=== PATIENT | female | born 1985 | race Hispanic/Latino ===

== ENCOUNTER 2017-07-16 22:37 | Emergency (ER) | payer OTHER ==
[~2017-07-16 22:37] MED LIST: PHEN50TA2 PO; SULF1TAB42 PO
[2017-07-16] MEDS ORDERED: LORAZEPAM 2 MG/ML 1 ML VIAL ONE (23:27)
[2017-07-17 00:52] LABS: APPEARANCE,URINE Clear (CLEAR); BILIRUBIN,URINE Negative (NEGATIVE); COLOR,URINE Yellow (YELLOW); GLUCOSE, URINE (UA) Negative (NEGATIVE); KETONES,URINE Negative (NEGATIVE); LEUKOCYTE ESTERASE ,URINE Trace (NEGATIVE); NITRATE,URINE Negative (NEGATIVE); OCCULT BLOOD,URINE Trace (NEGATIVE); PROTEIN,URINE Negative (NEGATIVE); UROBILINOGEN,URINE 0.2 mg/dL (0.2-1.0)
[2017-07-17 01:02] LABS: BACTERIA,URINE Rare /HPF (None Seen); RBC,URINE 0-1 /HPF (0-1); WBC,URINE 0-1 /HPF (0-1)
[2017-07-17 01:04] LABS: HCG,QUAL RESULT NEGATIVE (NEGATIVE)
[2017-07-17] MEDS ORDERED: LIDOCAINE 1%-EPI 1:100,000 20 ML VIAL IJ ONE (01:27)
== END 2017-07-17 02:57 | disposition home or self-care (01) ==
LOC: EDH 22:37
DX: S01.81XA Laceration without foreign body of other part of head, initial encounter (principal); R56.9 Unspecified convulsions; Z91.041 Radiographic dye allergy status; Z88.0 Allergy status to penicillin; Z91.013 Allergy to seafood; X99.1XXA Assault by knife, initial encounter; Y93.89 Activity, other specified; Y92.89 Other specified places as the place of occurrence of the external cause; Y99.8 Other external cause status; F43.10 Post-traumatic stress disorder, unspecified
CPT/HCPCS: 12015; 70110; 71045; 81001; 81025; 96372; 99285; J2060; J3490

== ENCOUNTER 2017-07-23 15:11 | Emergency (ER) | payer OTHER ==
[2017-07-23] MEDS ORDERED: SODIUM CHLORIDE 0.9% 200 ML IV ONE (15:19)
[2017-07-23] MEDS ORDERED: FOSPHENYTOIN SODIUM 500 MG/10ML VIAL IJ ONE (15:20)
[2017-07-23 15:32] LABS: BASOPHILS % (AUTO) 0.9 % (0.0-5.0); EOSINOPHILS % (AUTO) 1.4 % (0.0-8.0); LYMPHOCYTES % (AUTO) 19.7 % (21.0-51.0); MEAN CORPUSCULAR HEMOGLOBIN 25.3 pg (27.0-33.0); MEAN CORPUSCULAR HGB CONC 33.1 g/dL (32.0-36.0); MEAN CORPUSCULAR VOLUME 76.3 fL (79-99); MONOCYTES % (AUTO) 6.8 % (3.0-13.0); NEUTROPHILS % (AUTO) 71.2 % (40.0-77.0); PLATELET COUNT (AUTO) 336 K/uL (130-400); RED BLOOD CELL COUNT(AUTO) 5.37 MIL/uL (4.00-5.50); RED CELL DISTRIBUTION WIDTH 16.3 % (11.0-15.5); WHITE BLOOD COUNT (AUTO) 8.8 K/uL (4.8-10.8)
[2017-07-23 15:33] LABS: APPEARANCE,URINE Clear (CLEAR); BILIRUBIN,URINE Negative (NEGATIVE); COLOR,URINE Yellow (YELLOW); GLUCOSE, URINE (UA) Negative (NEGATIVE); KETONES,URINE Negative (NEGATIVE); LEUKOCYTE ESTERASE ,URINE Negative (NEGATIVE); NITRATE,URINE Negative (NEGATIVE); OCCULT BLOOD,URINE Negative (NEGATIVE); PH,URINE 5.5 (5.0-8.0); PROTEIN,URINE Negative (NEGATIVE); UROBILINOGEN,URINE 0.2 mg/dL (0.2-1.0)
[2017-07-23 15:34] LABS: AMPHET/METH SCREEN,URINE NEGATIVE (NEGATIVE); BARBITURATE SCREEN, URINE NEGATIVE (NEGATIVE); BENZODIAZEPINES SCREEN,URINE POSITIVE (NEGATIVE); CANNABINOID SCREEN,URINE NEGATIVE (NEGATIVE); COCAINE SCREEN,URINE POSITIVE (NEGATIVE); OPIATE SCREEN,URINE NEGATIVE (NEGATIVE); PHENCYCLIDINE SCREEN,URINE NEGATIVE (NEGATIVE)
[2017-07-23 15:45] LABS: POTASSIUM 3.4 mmol/L (3.5-5.1)
[2017-07-23 15:48] LABS: HCG,QUAL RESULT NEGATIVE (NEGATIVE)
[2017-07-23 15:50] LABS: ALBUMIN 3.7 g/dL (3.5-5.0); BILIRUBIN,TOTAL 0.2 mg/dL (0.2-1.0); TOTAL PROTEIN, SERUM 7.9 g/dL (6.0-8.3)
== END 2017-07-23 17:55 | disposition home or self-care (01) ==
LOC: EDH 15:11
DX: G40.909 Epilepsy, unspecified, not intractable, without status epilepticus (principal); F19.10 Other psychoactive substance abuse, uncomplicated
CPT/HCPCS: 36415; 74176; 80053; 80177; 80305; 81003; 81025; 85025; 96365; 96375; 99285; G0480; Q2009

== ENCOUNTER 2018-02-25 21:43 | Emergency (ER) | payer SELFPAY ==
[2018-02-25] MEDS ORDERED: HYDROCODONE/ACETAMINOPHEN 10/325 MG TAB ONE (22:43)
== END 2018-02-25 23:29 | disposition home or self-care (01) ==
LOC: EDH 21:43
DX: S93.401A Sprain of unspecified ligament of right ankle, initial encounter (principal); S39.012A Strain of muscle, fascia and tendon of lower back, initial encounter; F41.9 Anxiety disorder, unspecified; F31.9 Bipolar disorder, unspecified; F43.10 Post-traumatic stress disorder, unspecified; Z88.0 Allergy status to penicillin; Z91.041 Radiographic dye allergy status; Z91.013 Allergy to seafood; Z98.51 Tubal ligation status; Z98.890 Other specified postprocedural states; W20.8XXA Other cause of strike by thrown, projected or falling object, initial encounter; Y93.39 Activity, other involving climbing, rappelling and jumping off; Y92.89 Other specified places as the place of occurrence of the external cause; Y99.8 Other external cause status
CPT/HCPCS: 73610

== ENCOUNTER 2019-03-15 08:00 | Inpatient (IN) | payer OTHER ==
[~2019-03-15] VITALS: Ht 157.5 cm; Wt 88.9 kg
[2019-03-15] MEDS ORDERED: EPINEPHRINE 1 MG/ML AMPULE ONE (08:04)
[2019-03-15] MEDS ORDERED: ALBUTEROL SULFATE 0.083% 2.5 MG/3 ML INH IH ONE ×3 (08:07→11:08)
[2019-03-15] MEDS ORDERED: METHYLPREDNISOLONE SOD SUCC 40MG/ML 1ML ONE ×2 (08:20→15:53)
[2019-03-15 08:24] LABS: ABG BASE EXCESS -1.8 mmol/L (-2.0-3.0); ABG HCO3 22.3 mmol/L (21.0-28.0); ABG OXYGEN SATURATION 97.9 % (95.0-99.0); ABG PCO2 36 mmHg (32-45)
[2019-03-15 08:35] LABS: BASOPHILS % (AUTO) 0.1 % (0.0-5.0); EOSINOPHILS % (AUTO) 0.9 % (0.0-8.0); LYMPHOCYTES % (AUTO) 10.1 % (21.0-51.0); MEAN CORPUSCULAR HEMOGLOBIN 25.6 pg (27.0-33.0); MEAN CORPUSCULAR HGB CONC 32.1 g/dL (32.0-36.0); MEAN CORPUSCULAR VOLUME 79.5 fL (79-99); MONOCYTES % (AUTO) 2.8 % (3.0-13.0); NEUTROPHILS % (AUTO) 85.4 % (40.0-77.0); PLATELET COUNT (AUTO) 311 K/uL (130-400); RED BLOOD CELL COUNT(AUTO) 5.28 MIL/uL (4.00-5.50); RED CELL DISTRIBUTION WIDTH 14.1 % (11.0-15.5); WHITE BLOOD COUNT (AUTO) 14.4 K/uL (4.8-10.8)
[2019-03-15 09:28] LABS: AMPHET/METH SCREEN,URINE NEGATIVE (NEGATIVE); BARBITURATE SCREEN, URINE NEGATIVE (NEGATIVE); BENZODIAZEPINES SCREEN,URINE POSITIVE (NEGATIVE); CANNABINOID SCREEN,URINE NEGATIVE (NEGATIVE); COCAINE SCREEN,URINE POSITIVE (NEGATIVE); OPIATE SCREEN,URINE NEGATIVE (NEGATIVE); PHENCYCLIDINE SCREEN,URINE NEGATIVE (NEGATIVE)
[2019-03-15 09:35] LABS: CREATININE 0.9 mg/dL (0.5-1.5); POTASSIUM 3.5 mmol/L (3.5-5.1)
[2019-03-15] MEDS: SODIUM CHLORIDE 0.9% 1000ML 1,000 ML IV SCH (15:00)
[2019-03-15] MEDS ORDERED: ONDANSETRON HCL 4 MG/2 ML VIAL IV PRN (15:00)
[2019-03-15] MEDS ORDERED: ACETAMINOPHEN 325 MG TAB PO PRN ×2 (15:00)
[2019-03-15] MEDS: LEVOFLOXACIN 500 MG/D5W 100 ML 100 ML IV SCH (15:15)
[2019-03-15] MEDS ORDERED: METHYLPREDNISOLONE SOD SUCC 40MG/ML 1ML IVP SCH (15:15)
[2019-03-15] MEDS ORDERED: SODIUM CHLORIDE 0.9% 1000ML 1,000 ML IV ONE (15:54)
[2019-03-15] MEDS ORDERED: LEVOFLOXACIN 500 MG/D5W 100 ML 100 ML ONE (15:54)
[2019-03-15] MEDS: IPRATROPIUM/ALBUTEROL SULFATE 3 ML SOLUTION IH SCH ×2 (18:31→23:41)
[2019-03-15 19:00] VITALS: BP 124/65
[2019-03-15] MEDS: FAMOTIDINE/PF 20 MG/2 ML VIAL IV SCH (22:28)
[2019-03-15] MEDS: CETIRIZINE HCL 5 MG TABLET PO SCH (22:29)
[2019-03-15 23:43] VITALS: BP 147/76
[2019-03-15] MEDS: METHYLPREDNISOLONE SOD SUCC 40MG/ML 1ML IVP SCH (23:57)
[2019-03-16 04:00] VITALS: BP 155/92
[2019-03-16 04:55] LABS: EOSINOPHILS % (AUTO) 0.1 % (0.0-8.0); HEMATOCRIT 38.5 % (36-48); LYMPHOCYTES % (AUTO) 6.4 % (21.0-51.0); MEAN CORPUSCULAR HEMOGLOBIN 25.8 pg (27.0-33.0); MEAN CORPUSCULAR HGB CONC 32.2 g/dL (32.0-36.0); MEAN CORPUSCULAR VOLUME 80.2 fL (79-99); MONOCYTES % (AUTO) 1.7 % (3.0-13.0); NEUTROPHILS % (AUTO) 90.9 % (40.0-77.0); PLATELET COUNT (AUTO) 296 K/uL (130-400); RED CELL DISTRIBUTION WIDTH 14.5 % (11.0-15.5); WHITE BLOOD COUNT (AUTO) 8.7 K/uL (4.8-10.8)
[2019-03-16 05:04] LABS: ALBUMIN 3.3 g/dL (3.5-5.0); BILIRUBIN,TOTAL 0.3 mg/dL (0.2-1.0); CREATININE 0.7 mg/dL (0.5-1.5); POTASSIUM 4.2 mmol/L (3.5-5.1); TOTAL PROTEIN, SERUM 7.2 g/dL (6.0-8.3)
[2019-03-16] MEDS: IPRATROPIUM/ALBUTEROL SULFATE 3 ML SOLUTION IH SCH ×3 (06:16→23:55)
[2019-03-16 08:00] VITALS: BP 138/78
[2019-03-16] MEDS: FAMOTIDINE/PF 20 MG/2 ML VIAL IV SCH ×2 (09:00→21:27)
[2019-03-16 09:09] LABS: CREATINE KINASE, TOTAL 55 U/L (21-232); MYOGLOBIN 30 ng/mL (10-92); TROPONIN I < 0.04 ng/mL (0.00-0.06)
[2019-03-16] MEDS: METHYLPREDNISOLONE SOD SUCC 40MG/ML 1ML IVP SCH ×2 (09:13→17:21)
[2019-03-16] MEDS: MONTELUKAST SODIUM 10 MG TAB PO SCH (09:14)
[2019-03-16] MEDS: CETIRIZINE HCL 5 MG TABLET PO SCH ×2 (09:14→21:26)
--- NOTE | 2019-03-16 11:51 | NUR ---
PSYCH CONSULT PAGED DR. XAVIER REGARDING NEW CONSULT FOR PATIENT WITH HX OF BIPOLAR, PTSD, AND ANXIETY.
[2019-03-16 12:03] VITALS: BP 130/83
--- NOTE | 2019-03-16 14:16 | NUR ---
Iniital Assessment SW spoke with patient. Patient lives with brother, Santiago Dent, [phone]. No home services or DME. Patient is independent but does not drive. No PCP. Pharmacy is [facility] located in [place]. DCP is home. Patient has no insurance or benefits. She is a [place] citizen and has filed for disability. Patient states her SSI appt was 01/04/2019. [facility] is working with patient. Patient provided with community resources for post discharge follow up and Good Rx card for prescriptions. Addendum: 03/16/19 at 1428 by JOSE PASCUAL Amended: Links added.
[2019-03-16] MEDS: LEVOFLOXACIN 500 MG/D5W 100 ML 100 ML IV SCH (15:05)
[2019-03-16 16:00] VITALS: BP 117/72
[2019-03-16 20:00] VITALS: BP 148/88
[2019-03-16 23:48] VITALS: BP 131/58
[2019-03-17] VITALS (7 sets, daily range): BP systolic 117–131; BP diastolic 45–80
[2019-03-17] MEDS: SODIUM CHLORIDE 0.9% 1000ML 1,000 ML IV SCH ×4 (00:32→14:45)
[2019-03-17] MEDS: METHYLPREDNISOLONE SOD SUCC 40MG/ML 1ML IVP SCH ×3 (00:32→14:55)
[2019-03-17 04:35] LABS: HEMATOCRIT 37.8 % (36-48); MEAN CORPUSCULAR HEMOGLOBIN 25.9 pg (27.0-33.0); MEAN CORPUSCULAR HGB CONC 31.7 g/dL (32.0-36.0); MEAN CORPUSCULAR VOLUME 81.5 fL (79-99); PLATELET COUNT (AUTO) 298 K/uL (130-400); RED BLOOD CELL COUNT(AUTO) 4.64 MIL/uL (4.00-5.50); RED CELL DISTRIBUTION WIDTH 14.9 % (11.0-15.5); WHITE BLOOD COUNT (AUTO) 9.1 K/uL (4.8-10.8)
[2019-03-17 04:43] LABS: CREATININE 0.8 mg/dL (0.5-1.5); POTASSIUM 4.6 mmol/L (3.5-5.1)
[2019-03-17] MEDS: IPRATROPIUM/ALBUTEROL SULFATE 3 ML SOLUTION IH SCH ×4 (06:46→23:21)
[2019-03-17] MEDS: MONTELUKAST SODIUM 10 MG TAB PO SCH (08:30)
[2019-03-17] MEDS: CETIRIZINE HCL 5 MG TABLET PO SCH ×2 (08:30→20:29)
[2019-03-17] MEDS: FAMOTIDINE/PF 20 MG/2 ML VIAL IV SCH ×2 (08:31→20:28)
--- NOTE | 2019-03-17 11:36 | NUR ---
[facility] [place] SPOKE TO JOHANA FROM [facility] REGARDING PT MEDICATIONS. SHE WAS ABLE TO OCNFIRM MEDS. DR GÓMEZ MADE AWARE. WILL CONT TO [place]
[2019-03-17] MEDS ORDERED: LITH300T4 PO (11:41)
[2019-03-17] MEDS ORDERED: TRAZ-187 PO (11:41)
[2019-03-17] MEDS ORDERED: GABA-531 PO (11:42)
[2019-03-17] MEDS ORDERED: ESCI20TA PO (11:42)
[2019-03-17] MEDS ORDERED: PRAZ1CAP5 PO (11:42)
[2019-03-17] MEDS: KETOROLAC TROMETHAMINE 15MG/ML IV PRN ×2 (12:44→20:34)
[2019-03-17] MEDS: LEVOFLOXACIN 500 MG/D5W 100 ML 100 ML IV SCH (14:56)
[2019-03-17] MEDS: GABAPENTIN 300 MG CAPSULE PO SCH ×2 (14:56→20:29)
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
[2019-03-17] MEDS: LACTULOSE 20 GM/30 ML UDCUP PO PRN (19:07)
[2019-03-17] MEDS: FOLIC ACID 1 MG TABLET PO SCH (20:29)
[2019-03-17] MEDS: LITHIUM CARBONATE 150 MG CAPSULE PO SCH (20:29)
[2019-03-17] MEDS: TRAZODONE HCL 100 MG TABLET PO SCH (20:30)
--- NOTE | 2019-03-17 20:30 | NUR ---
IV IV RIGHT AC INFILTRATED, DISCONTINUED IV, KEEP RUE ELEVATED ON PILLOW , RESTART IV LEFT AC 20 GAUGE CATHETER ,ATTEMPT X1 AND SUCCESSFUL,RESUME IVF INFUSING WELL, NO SEIZURE ACTIVITY NOTED, TEACH PLAN OF CARE AND EXPECTED OUTCOME, PATIENT VERBALIZES UNDERSTANDING VIA TEACH BACK
[2019-03-17] MEDS ORDERED: PRAZOSIN HCL 1 MG PO SCH (21:00)
[2019-03-18] MEDS: SODIUM CHLORIDE 0.9% 1000ML 1,000 ML IV SCH
[2019-03-18] MEDS: METHYLPREDNISOLONE SOD SUCC 40MG/ML 1ML IVP SCH
[2019-03-18 03:43] VITALS: BP 117/56
[2019-03-18] MEDS: KETOROLAC TROMETHAMINE 15MG/ML IV PRN ×2 (04:02→10:34)
[2019-03-18 04:57] LABS: BASOPHILS % (AUTO) 0.1 % (0.0-5.0); HEMATOCRIT 37.1 % (36-48); LYMPHOCYTES % (AUTO) 7.3 % (21.0-51.0); MEAN CORPUSCULAR HEMOGLOBIN 26.3 pg (27.0-33.0); MEAN CORPUSCULAR HGB CONC 32.3 g/dL (32.0-36.0); MEAN CORPUSCULAR VOLUME 81.2 fL (79-99); MONOCYTES % (AUTO) 4.9 % (3.0-13.0); NEUTROPHILS % (AUTO) 85.7 % (40.0-77.0); PLATELET COUNT (AUTO) 300 K/uL (130-400); RED BLOOD CELL COUNT(AUTO) 4.57 MIL/uL (4.00-5.50); RED CELL DISTRIBUTION WIDTH 14.6 % (11.0-15.5); WHITE BLOOD COUNT (AUTO) 10.4 K/uL (4.8-10.8)
[2019-03-18 05:08] LABS: ALBUMIN 3.1 g/dL (3.5-5.0); BILIRUBIN,TOTAL 0.2 mg/dL (0.2-1.0); CREATININE 0.8 mg/dL (0.5-1.5); POTASSIUM 4.6 mmol/L (3.5-5.1); TOTAL PROTEIN, SERUM 6.7 g/dL (6.0-8.3)
[2019-03-18] MEDS: IPRATROPIUM/ALBUTEROL SULFATE 3 ML SOLUTION IH SCH ×2 (06:13→11:19)
[2019-03-18 07:20] VITALS: BP 116/70
[2019-03-18] MEDS ORDERED: METHYLPREDNISOLONE SOD SUCC 40MG/ML 1ML IVP SCH (09:00)
[2019-03-18] MEDS: CETIRIZINE HCL 5 MG TABLET PO SCH (10:25)
[2019-03-18] MEDS: FAMOTIDINE/PF 20 MG/2 ML VIAL IV SCH (10:25)
[2019-03-18] MEDS: MONTELUKAST SODIUM 10 MG TAB PO SCH (10:26)
[2019-03-18] MEDS: FOLIC ACID 1 MG TABLET PO SCH (10:26)
[2019-03-18] MEDS: CITALOPRAM 20 MG TABLET PO SCH ×2 (10:26→18:07)
[2019-03-18] MEDS: LITHIUM CARBONATE 150 MG CAPSULE PO SCH ×2 (10:26→18:07)
[2019-03-18] MEDS: GABAPENTIN 300 MG CAPSULE PO SCH ×3 (10:28→18:07)
[2019-03-18] MEDS: LACTULOSE 20 GM/30 ML UDCUP PO PRN (10:39)
[2019-03-18 10:52] VITALS: BP 149/89
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
--- NOTE | 2019-03-18 14:50 | NUR ---
[facility] CALLED [facility] , SPOKE TO MERYL. INFORMED PATIENT MEDICALLY CLEARED AND NEEDS EVALUATION PRIOR TO DISCHARGE. INFORMED THAT PATIENT IS A CURRENT PATIENT OF [facility]. MERYL TOLD ME PATIENT MAY NOT MEET [facility] FOR EVALUATION PATIENT IS NOT ACTIVELY SUICIDAL, BUT A PAGE WOULD STILL BE SENT TO [facility] ENTRY LEVEL PROJECT ENGINEER.
[2019-03-18 15:41] VITALS: BP 129/64
[2019-03-18] MEDS ORDERED: BUDE10.2 IH (15:51)
[2019-03-18] MEDS: LEVOFLOXACIN 500 MG/D5W 100 ML 100 ML IV SCH (15:53)
--- NOTE | 2019-03-18 17:15 | NUR ---
[facility] TO F/U WITH PATIENT SPOKE TO [facility] FOOTBALL PAD REPAIRER, Luis ANNE, WHO WAS ON FLOOR AT THIS TIME TO SEE ANOTHER PATIENT. I ASKED ABOUT THE [facility] PROCESS REGARDING FOLLOWING-UP WITH PATIENTS AFTER DISCHARGE FROM HOSPITAL. Luis ANNE TOLD ME THAT ONCE [facility] RECEIVES CALL FROM NURSE, THAT [facility] WILL RECEIVE THE ALERT AND WILL SEND A CORDUROY BRUSHER OPERATOR TO PATIENTS HOME TO FOLLOW-UP AFTER DISCHARGE.
[2019-03-18] MEDS ORDERED: BUDESONIDE 0.5 MG/2 ML INH IH SCH (18:00)
[2019-03-18] MEDS: TRAZODONE HCL 100 MG TABLET PO SCH (18:08)
== END 2019-03-18 18:53 | disposition home or self-care (01) | DRG 202 ==
LOC: EDH 08:00 → EDHIP 08:01 → 4BH 18:43
PROVIDERS: ADMIT Internal Medicine; ATTEND Internal Medicine
DX: J45.902 Unspecified asthma with status asthmaticus (principal); J96.00 Acute respiratory failure, unspecified whether with hypoxia or hypercapnia; S27.309A Unspecified injury of lung, unspecified, initial encounter; D72.829 Elevated white blood cell count, unspecified; F14.10 Cocaine abuse, uncomplicated; F31.9 Bipolar disorder, unspecified; F41.1 Generalized anxiety disorder; F43.10 Post-traumatic stress disorder, unspecified; G40.909 Epilepsy, unspecified, not intractable, without status epilepticus; F43.22 Adjustment disorder with anxiety; J44.9 Chronic obstructive pulmonary disease, unspecified; Y93.89 Activity, other specified; Y92.89 Other specified places as the place of occurrence of the external cause; Y99.8 Other external cause status; Z91.19 Patient's noncompliance with other medical treatment and regimen; Z87.820 Personal history of traumatic brain injury; Z91.013 Allergy to seafood; Z88.8 Allergy status to other drugs, medicaments and biological substances; Z82.5 Family history of asthma and other chronic lower respiratory diseases
CPT/HCPCS: 36415; 36600; 70360; 70551; 71045; 80048; 80053; 80305; 82550; 82803; 83874; 84484; 85025; 85027; 87804; 93005; 94640; 94664; 99291; G0378; J0171; J1885; J1956; J2920; J3490; J7030

== ENCOUNTER 2019-04-02 12:55 | Inpatient (IN) | payer OTHER ==
[~2019-04-02 12:55] MED LIST changes: +BUDE10.2 IH; +ESCI20TA PO; +GABA-531 PO; +LITH300T4 PO; -PHEN50TA2 PO; +PRAZ1CAP5 PO; -SULF1TAB42 PO; +TRAZ-187 PO
[2019-04-02] MEDS ORDERED: IPRATROPIUM/ALBUTEROL SULFATE 3 ML SOLUTION IH ONE ×2 (12:58→16:12)
[2019-04-02] MEDS ORDERED: METHYLPREDNISOLONE SOD SUCC 125MG/2ML VIAL ONE (13:12)
[2019-04-02 13:20] LABS: BASOPHILS % (AUTO) 1.5 % (0.0-5.0); HEMATOCRIT 42.9 % (36-48); LYMPHOCYTES % (AUTO) 9.7 % (21.0-51.0); MEAN CORPUSCULAR HEMOGLOBIN 25.9 pg (27.0-33.0); MEAN CORPUSCULAR HGB CONC 32.2 g/dL (32.0-36.0); MEAN CORPUSCULAR VOLUME 80.5 fL (79-99); MONOCYTES % (AUTO) 4.8 % (3.0-13.0); NEUTROPHILS % (AUTO) 65.2 % (40.0-77.0); PLATELET COUNT (AUTO) 237 K/uL (130-400); RED BLOOD CELL COUNT(AUTO) 5.33 MIL/uL (4.00-5.50); RED CELL DISTRIBUTION WIDTH 14.3 % (11.0-15.5); WHITE BLOOD COUNT (AUTO) 11.1 K/uL (4.8-10.8)
[2019-04-02] MEDS ORDERED: MAGNESIUM 2GM PREMIX 50ML 50 ML IV ONE (13:23)
[2019-04-02 13:28] LABS: CREATININE 0.6 mg/dL (0.5-1.5); POTASSIUM 5.6 mmol/L (3.5-5.1)
[2019-04-02 13:36] LABS: ALBUMIN 3.7 g/dL (3.5-5.0); BILIRUBIN,TOTAL 0.5 mg/dL (0.2-1.0); TOTAL PROTEIN, SERUM 7.9 g/dL (6.0-8.3)
[2019-04-02] MEDS ORDERED: METHYLPREDNISOLONE SOD SUCC 40MG/ML 1ML IVP SCH (15:45)
[2019-04-02] MEDS ORDERED: ACETAMINOPHEN 325 MG TAB PO PRN (15:45)
[2019-04-02] MEDS ORDERED: ONDANSETRON HCL 4 MG/2 ML VIAL IVP PRN (15:45)
[2019-04-02] MEDS: IPRATROPIUM/ALBUTEROL SULFATE 3 ML SOLUTION IH SCH ×2 (16:47→23:47)
[2019-04-02] MEDS ORDERED: FAMOTIDINE 20MG TAB 20 MG TAB ONE (20:58)
[2019-04-02] MEDS ORDERED: METHYLPREDNISOLONE SOD SUCC 40MG/ML 1ML ONE (20:58)
[2019-04-02] MEDS ORDERED: FAMOTIDINE 20MG TAB 20 MG TAB PO SCH (21:00)
[2019-04-03 00:45] LABS: AMPHET/METH SCREEN,URINE NEGATIVE (NEGATIVE); BARBITURATE SCREEN, URINE NEGATIVE (NEGATIVE); BENZODIAZEPINES SCREEN,URINE POSITIVE (NEGATIVE); CANNABINOID SCREEN,URINE NEGATIVE (NEGATIVE); COCAINE SCREEN,URINE POSITIVE (NEGATIVE); OPIATE SCREEN,URINE NEGATIVE (NEGATIVE); PHENCYCLIDINE SCREEN,URINE NEGATIVE (NEGATIVE)
[2019-04-03] MEDS ORDERED: IPRATROPIUM/ALBUTEROL SULFATE 3 ML SOLUTION IH ONE ×2 (05:21→11:01)
[2019-04-03] MEDS: IPRATROPIUM/ALBUTEROL SULFATE 3 ML SOLUTION IH SCH ×2 (05:26→11:08)
[2019-04-03 07:40] LABS: BASOPHILS % (AUTO) 0.5 % (0.0-5.0); EOSINOPHILS % (AUTO) 1.5 % (0.0-8.0); HEMATOCRIT 39.3 % (36-48); LYMPHOCYTES % (AUTO) 9.5 % (21.0-51.0); MEAN CORPUSCULAR HEMOGLOBIN 25.9 pg (27.0-33.0); MEAN CORPUSCULAR HGB CONC 32.1 g/dL (32.0-36.0); MEAN CORPUSCULAR VOLUME 80.9 fL (79-99); MONOCYTES % (AUTO) 5.8 % (3.0-13.0); NEUTROPHILS % (AUTO) 81.8 % (40.0-77.0); PLATELET COUNT (AUTO) 238 K/uL (130-400); RED BLOOD CELL COUNT(AUTO) 4.86 MIL/uL (4.00-5.50); RED CELL DISTRIBUTION WIDTH 14.5 % (11.0-15.5); WHITE BLOOD COUNT (AUTO) 10.2 K/uL (4.8-10.8)
[2019-04-03 07:51] LABS: CREATININE 0.6 mg/dL (0.5-1.5); MAGNESIUM 2.4 mg/dL (1.80-2.40); POTASSIUM 4.1 mmol/L (3.5-5.1)
[2019-04-03] MEDS ORDERED: ZOSYN 3.375GM+NS 50ML 50 ML IV ONE (09:19)
[2019-04-03] MEDS ORDERED: ENOXAPARIN SODIUM 40 MG/0.4 ML SYRINGE SQ ONE (09:19)
[2019-04-03] MEDS ORDERED: METHYLPREDNISOLONE SOD SUCC 40MG/ML 1ML ONE (09:19)
[2019-04-03] MEDS ORDERED: FAMOTIDINE/PF 20 MG/2 ML VIAL IV ONE (09:20)
[2019-04-03] MEDS ORDERED: LACTATED RINGERS 1000ML 1,000 ML IV ONE (09:20)
[2019-04-03] MEDS ORDERED: DOXYCYCLINE HYCLATE 100 MG TABLET PO SCH (21:00)
== END 2019-04-03 15:20 | disposition left against medical advice (07) | DRG 189 ==
LOC: EDH 12:55 → EDHIP 12:56
PROVIDERS: ADMIT Family Medicine; ATTEND Family Medicine
DX: J96.01 Acute respiratory failure with hypoxia (principal); J45.901 Unspecified asthma with (acute) exacerbation; F31.9 Bipolar disorder, unspecified; F41.9 Anxiety disorder, unspecified; G40.909 Epilepsy, unspecified, not intractable, without status epilepticus; J44.9 Chronic obstructive pulmonary disease, unspecified; F43.10 Post-traumatic stress disorder, unspecified; Z82.0 Family history of epilepsy and other diseases of the nervous system; Z82.5 Family history of asthma and other chronic lower respiratory diseases
CPT/HCPCS: 36415; 71045; 80048; 80053; 80305; 83735; 84702; 85025; 87040; 87804; 94640; 94664; 99291; G0378; J1650; J2543; J2920; J2930; J3475; J3490; J7120

== ENCOUNTER 2019-04-06 16:30 | Inpatient (IN) | payer OTHER ==
[~2019-04-06] VITALS: Ht 165.1 cm; Wt 86.8 kg
[2019-04-06] MEDS ORDERED: IPRATROPIUM/ALBUTEROL SULFATE 3 ML SOLUTION IH ONE (16:36)
[2019-04-06] MEDS ORDERED: METHYLPREDNISOLONE SOD SUCC 125MG/2ML VIAL ONE (16:47)
[2019-04-06] MEDS ORDERED: MAGNESIUM 2GM PREMIX 50ML 50 ML IV ONE (16:47)
[2019-04-06] MEDS ORDERED: ALBUTEROL SULFATE 0.083% 2.5 MG/3 ML INH IH ONE (16:50)
[2019-04-06 16:53] LABS: BASOPHILS % (AUTO) 0.5 % (0.0-5.0); EOSINOPHILS % (AUTO) 29.4 % (0.0-8.0); HEMATOCRIT 44.3 % (36-48); LYMPHOCYTES % (AUTO) 5.9 % (21.0-51.0); MEAN CORPUSCULAR HEMOGLOBIN 25.5 pg (27.0-33.0); MEAN CORPUSCULAR HGB CONC 31.8 g/dL (32.0-36.0); MEAN CORPUSCULAR VOLUME 80.3 fL (79-99); MONOCYTES % (AUTO) 4.2 % (3.0-13.0); NEUTROPHILS % (AUTO) 59.5 % (40.0-77.0); PLATELET COUNT (AUTO) 306 K/uL (130-400); RED BLOOD CELL COUNT(AUTO) 5.52 MIL/uL (4.00-5.50); RED CELL DISTRIBUTION WIDTH 14.1 % (11.0-15.5); WHITE BLOOD COUNT (AUTO) 20.4 K/uL (4.8-10.8)
[2019-04-06 17:05] LABS: CREATININE 0.7 mg/dL (0.5-1.5); POTASSIUM 3.9 mmol/L (3.5-5.1)
[2019-04-06 17:10] LABS: ALBUMIN 3.7 g/dL (3.5-5.0); BILIRUBIN,TOTAL 0.6 mg/dL (0.2-1.0); TOTAL PROTEIN, SERUM 7.9 g/dL (6.0-8.3)
[2019-04-06] MEDS ORDERED: ACETAMINOPHEN EXTRA STRENGTH 500 MG TABLET ONE (17:49)
[2019-04-06] MEDS ORDERED: CLINDAMYCIN 600 MG/D5% WATER 50 ML IV ONE (17:49)
[2019-04-06] MEDS ORDERED: TERBUTALINE SULFATE VIAL 1MG/ML SQ ONE (18:15)
[2019-04-06] MEDS ORDERED: VANCOMYCIN PROTOCOL PER PHARMACY IV SCH (18:30)
[2019-04-06] MEDS: SODIUM CHLORIDE 0.9% 1000ML 1,000 ML IV SCH (18:30)
[2019-04-06 18:37] LABS: APPEARANCE,URINE Clear (CLEAR); BILIRUBIN,URINE Negative (NEGATIVE); COLOR,URINE Yellow (YELLOW); GLUCOSE, URINE (UA) Negative (NEGATIVE); KETONES,URINE Negative (NEGATIVE); LEUKOCYTE ESTERASE ,URINE Negative (NEGATIVE); NITRATE,URINE Negative (NEGATIVE); OCCULT BLOOD,URINE Negative (NEGATIVE); PH,URINE 5.5 (5.0-8.0); PROTEIN,URINE Negative (NEGATIVE); UROBILINOGEN,URINE 0.2 mg/dL (0.2-1.0)
[2019-04-06] MEDS ORDERED: VANCOMYCIN 1GM+NS 250ML 250 ML IV ONE (18:38)
[2019-04-06 18:39] LABS: HCG,QUAL RESULT NEGATIVE (NEGATIVE)
[2019-04-06 18:45] LABS: AMPHET/METH SCREEN,URINE NEGATIVE (NEGATIVE); BARBITURATE SCREEN, URINE NEGATIVE (NEGATIVE); BENZODIAZEPINES SCREEN,URINE POSITIVE (NEGATIVE); CANNABINOID SCREEN,URINE NEGATIVE (NEGATIVE); COCAINE SCREEN,URINE POSITIVE (NEGATIVE); OPIATE SCREEN,URINE NEGATIVE (NEGATIVE); PHENCYCLIDINE SCREEN,URINE NEGATIVE (NEGATIVE)
[2019-04-06] MEDS ORDERED: ACETAMINOPHEN 325 MG TAB PO PRN (18:45)
[2019-04-06] MEDS ORDERED: ONDANSETRON HCL 4 MG/2 ML VIAL IV PRN (18:45)
[2019-04-06] MEDS ORDERED: NITROGLYCERIN 0.4 MG SL TAB SL PRN (18:45)
[2019-04-06] MEDS: CLINDAMYCIN 600 MG/D5% WATER 50 ML IV SCH (18:45)
[2019-04-06] MEDS ORDERED: SODIUM CHLORIDE 0.9% 1000ML 1,000 ML IV SCH (18:45)
[2019-04-06] MEDS ORDERED: DiphenhydrAMINE HCL 50 MG/ML VIAL IV PRN (18:45)
[2019-04-06] MEDS ORDERED: COMPOUND IV REFRIGERATED 1 EACH IVSOLN MISC PRN (19:00)
[2019-04-06] MEDS ORDERED: VANCOMYCIN 1.75 GM in SODIUM CHLORIDE 0.9% 250 ML IV ONE (19:00)
[2019-04-06] MEDS ORDERED: SODIUM CHLORIDE 0.9% 1000ML 1,000 ML IV ONE ×2 (19:50→23:38)
[2019-04-06] MEDS ORDERED: FAMOTIDINE 20MG TAB 20 MG TAB ONE (19:50)
[2019-04-06] MEDS: FAMOTIDINE 20MG TAB 20 MG TAB PO SCH (21:00)
[2019-04-06] MEDS: IPRATROPIUM/ALBUTEROL SULFATE 3 ML SOLUTION IH SCH (22:25)
[2019-04-06] MEDS ORDERED: SODIUM CHLORIDE 3% FOR INHALATION 4 ML/AMP VIAL.NEB IH ONE (23:07)
[2019-04-06] MEDS ORDERED: ACETAMINOPHEN 325 MG TAB ONE (23:45)
[2019-04-07] MEDS ORDERED: METHYLPREDNISOLONE SOD SUCC 40MG/ML 1ML ONE (01:02)
[2019-04-07] MEDS: IPRATROPIUM/ALBUTEROL SULFATE 3 ML SOLUTION IH SCH ×5 (02:01→21:12)
[2019-04-07] MEDS ORDERED: CLINDAMYCIN 600 MG/D5% WATER 50 ML IV ONE (02:29)
[2019-04-07] MEDS: CLINDAMYCIN 600 MG/D5% WATER 50 ML IV SCH ×3 (02:45→21:25)
[2019-04-07 03:00] VITALS: BP 125/87
--- NOTE | 2019-04-07 03:00 | NUR ---
REPORT RECEIVED FROM PHILIP MATHEW. PT CAME IN DUE TO SOB. CURRENTLY NO DISTRESS NOTED. ON IV FLUIDS. CLEOCIN STARTED IN ER. PT HAS HISTORY OF ASTHMA, AND FREQUENTLY HOSPITALIZED DUE TO THIS SITUATION. PT PRESENTED HOME MEDICATIONS. AMBULATORY. NASAL CANNULA AT 3LPM.
[2019-04-07] MEDS: ACETAMINOPHEN 325 MG TAB PO PRN ×2 (04:00→14:11)
--- NOTE | 2019-04-07 04:00 | NUR ---
SOB NOTED-RT PLACED PT ON BIPAP. NEW ORDERS RECEIVED FOR BIPAP PER JESSICA CRYSTAL NP.
[2019-04-07] MEDS: SODIUM CHLORIDE 0.9% 1000ML 1,000 ML IV SCH ×2 (04:30→14:30)
[2019-04-07] MEDS: VANCOMYCIN 1GM+NS 250ML 250 ML IV SCH ×3 (05:10→21:25)
[2019-04-07] MEDS ORDERED: ALPR2TAB2 PO (05:26)
[2019-04-07 06:42] LABS: HEMATOCRIT 42.4 % (36-48); MEAN CORPUSCULAR HEMOGLOBIN 25.4 pg (27.0-33.0); MEAN CORPUSCULAR HGB CONC 31.1 g/dL (32.0-36.0); MEAN CORPUSCULAR VOLUME 81.5 fL (79-99); PLATELET COUNT (AUTO) 273 K/uL (130-400); RED CELL DISTRIBUTION WIDTH 14.2 % (11.0-15.5); WHITE BLOOD COUNT (AUTO) 7.8 K/uL (4.8-10.8)
[2019-04-07 06:59] LABS: ALBUMIN 3.7 g/dL (3.5-5.0); BILIRUBIN,TOTAL 0.3 mg/dL (0.2-1.0); CREATININE 0.7 mg/dL (0.5-1.5); MAGNESIUM 2.3 mg/dL (1.80-2.40); TOTAL PROTEIN, SERUM 7.6 g/dL (6.0-8.3)
[2019-04-07 07:27] LABS: ABG HCO3 22.3 mmol/L (21.0-28.0); ABG OXYGEN SATURATION 92.8 % (95.0-99.0); ABG PCO2 41 mmHg (32-45)
[2019-04-07 07:51] VITALS: BP 137/87
[2019-04-07 08:26] LABS: BAND NEUTROPHILS % (MANUAL) 1 % (0-2); LYMPHOCYTES % (MANUAL) 8 % (22-44); MAN.DIFF COMMENT-IMPRESSION MANUAL DIFFERENTIAL; MONOCYTES % (MANUAL) 1 % (2-9); SEGMENTED NEUTROPHILS % 90 % (40-70)
[2019-04-07 08:27] LABS: PLATELET MORPHOLOGY COMMENT ADEQUATE
[2019-04-07] MEDS: ENOXAPARIN SODIUM 40 MG/0.4 ML SYRINGE SQ SCH (08:51)
[2019-04-07] MEDS: METHYLPREDNISOLONE SOD SUCC 125MG/2ML VIAL IV SCH ×4 (08:52→23:42)
[2019-04-07] MEDS: FAMOTIDINE 20MG TAB 20 MG TAB PO SCH ×2 (08:52→21:24)
[2019-04-07 12:28] VITALS: BP 126/80
[2019-04-07 16:32] VITALS: BP 125/76
[2019-04-07 19:33] VITALS: BP 117/68
[2019-04-07 23:54] VITALS: BP 113/78
[2019-04-08] MEDS: SODIUM CHLORIDE 0.9% 1000ML 1,000 ML IV SCH ×2 (00:20→10:18)
[2019-04-08] MEDS: IPRATROPIUM/ALBUTEROL SULFATE 3 ML SOLUTION IH SCH ×6 (01:44→21:27)
[2019-04-08 04:00] VITALS: BP 118/68
[2019-04-08] MEDS: CLINDAMYCIN 600 MG/D5% WATER 50 ML IV SCH ×2 (04:24→10:13)
[2019-04-08] MEDS: VANCOMYCIN 1GM+NS 250ML 250 ML IV SCH (04:35)
[2019-04-08] MEDS: METHYLPREDNISOLONE SOD SUCC 125MG/2ML VIAL IV SCH (07:15)
[2019-04-08] MEDS: FAMOTIDINE 20MG TAB 20 MG TAB PO SCH ×2 (07:15→19:55)
[2019-04-08] MEDS: ENOXAPARIN SODIUM 40 MG/0.4 ML SYRINGE SQ SCH (07:15)
--- NOTE | 2019-04-08 07:45 | NUR ---
ASSESSMENT PT IS AAOX3 DENIES CP DENIES SOB WHILE AT REST. NO COUGHING AT THIS TIME. DENIES NV NO COMPLAINTS RESTING IN BED, CALL LIGHT WITHIN REACH. CURRENTLY RECEIVING NEB TREATMENT.
[2019-04-08 07:51] VITALS: BP 116/66
[2019-04-08] MEDS: GABAPENTIN 300 MG CAPSULE PO SCH ×3 (08:43→19:56)
[2019-04-08] MEDS: CITALOPRAM 20 MG TABLET PO SCH (08:43)
[2019-04-08] MEDS ORDERED: LITHIUM CARBONATE 150 MG CAPSULE PO SCH (09:00)
[2019-04-08 11:34] VITALS: BP 135/80
[2019-04-08] MEDS ORDERED: ALBUTEROL SULFATE/IPRATROPIUM 103/18 MCG/PUFF 14.7 GM INHR IH PRN (13:15)
--- NOTE | 2019-04-08 13:40 | NUR ---
DR BEAL ROUNDED SAW PATIENT, ORDERS RECEIVED
[2019-04-08 16:04] VITALS: BP 112/54
[2019-04-08] MEDS: BUDESONIDE 0.5 MG/2 ML INH IH SCH (19:13)
[2019-04-08 19:41] VITALS: BP 148/93
[2019-04-08] MEDS ORDERED: VANCOMYCIN 1.25 GM in SODIUM CHLORIDE 0.9% 250 ML IV SCH (20:00)
[2019-04-08] MEDS ORDERED: PRAZOSIN HCL 1 MG PO SCH (21:00)
[2019-04-08] MEDS ORDERED: TRAZODONE HCL 100 MG TABLET PO SCH (21:00)
[2019-04-09 00:01] VITALS: BP 124/50
[2019-04-09] MEDS: IPRATROPIUM/ALBUTEROL SULFATE 3 ML SOLUTION IH SCH ×3 (01:41→10:12)
[2019-04-09 03:52] VITALS: BP 108/38
[2019-04-09 04:22] VITALS: BP 130/67
[2019-04-09] MEDS: BUDESONIDE 0.5 MG/2 ML INH IH SCH (07:11)
[2019-04-09 07:12] VITALS: BP 113/75
[2019-04-09] MEDS: FAMOTIDINE 20MG TAB 20 MG TAB PO SCH (07:41)
[2019-04-09] MEDS: GABAPENTIN 300 MG CAPSULE PO SCH (07:41)
[2019-04-09] MEDS: CITALOPRAM 20 MG TABLET PO SCH (07:41)
[2019-04-09] MEDS: ENOXAPARIN SODIUM 40 MG/0.4 ML SYRINGE SQ SCH (07:42)
--- NOTE | 2019-04-09 08:00 | NUR ---
ASSESSMENT PT IS AAOX3 DENIES CP DENIES SOB DENIES NV NO COMPLAINTS AT THIS TIME. RESTING IN BED. CALL LIGHT WITHIN REACH.
[2019-04-09] MEDS ORDERED: PREDNISONE 20 MG TABLET PO SCH (09:00)
[2019-04-09 11:23] VITALS: BP 136/89
--- NOTE | 2019-04-09 12:00 | NUR ---
ROUNDS DR LIAN GREEN / Susanna EGAN NP ROUNDED, PLAN DC HOME TODAY
--- NOTE | 2019-04-09 13:00 | NUR ---
DC TO HOME PT VERBALIZES DC INSTRUCTIONS UNDERSTANDING AGREE TO TAKE MEDS ORDERED AGREE TO FOLLOW UP WITH PRIMARY MD. ALL QUESTIONS ANSWERED, PIV REMOVED CATH TIP INTACT, TELE PACK REMOVED. ALL BELONGINS TAKEN DOWN VIA WC TO VEHICLE WITH NURSE AIDE AND FAMILY
== END 2019-04-09 13:07 | disposition home or self-care (01) | DRG 189 ==
LOC: EDH 16:30 → EDHIP 16:31 → EEVIPCON 16:31 → 2DH 04-07 01:59
PROVIDERS: ADMIT Internal Medicine; ATTEND Internal Medicine
PROC: 5A09357 Assistance with Respiratory Ventilation, Less than 24 Consecutive Hours, Continuous Positive Airway Pressure (ICD-10-PCS; principal; 2019-04-07)
DX: J96.01 Acute respiratory failure with hypoxia (principal); J45.901 Unspecified asthma with (acute) exacerbation; J44.9 Chronic obstructive pulmonary disease, unspecified; F43.10 Post-traumatic stress disorder, unspecified; F31.9 Bipolar disorder, unspecified; G40.909 Epilepsy, unspecified, not intractable, without status epilepticus; F14.90 Cocaine use, unspecified, uncomplicated; K59.00 Constipation, unspecified; E66.9 Obesity, unspecified; E83.42 Hypomagnesemia; Z82.5 Family history of asthma and other chronic lower respiratory diseases; Z91.19 Patient's noncompliance with other medical treatment and regimen; Z82.0 Family history of epilepsy and other diseases of the nervous system; Z90.49 Acquired absence of other specified parts of digestive tract; Z98.51 Tubal ligation status; Z88.8 Allergy status to other drugs, medicaments and biological substances; Z91.041 Radiographic dye allergy status; Z88.0 Allergy status to penicillin; Z91.013 Allergy to seafood; Z68.32 Body mass index [BMI] 32.0-32.9, adult
CPT/HCPCS: 36415; 36600; 71045; 80053; 80178; 80202; 80305; 81003; 81025; 82550; 82803; 83605; 83735; 84145; 84484; 85025; 87040; 87071; 87205; 87486; 87581; 87633; 87641; 87798; 87804; 93005; 94640; 94644; 94660; 94664; G0378; J1650; J2920; J2930; J3105; J3370; J3475; J3490; J7030

== ENCOUNTER 2019-05-18 05:30 | Inpatient (IN) | payer OTHER ==
[~2019-05-18] VITALS: Ht 157.5 cm; Wt 85.6 kg
[~2019-05-18 05:30] MED LIST changes: +ALPR2TAB2 PO
[2019-05-18] MEDS ORDERED: TERBUTALINE SULFATE VIAL 1MG/ML SQ ONE (05:42)
[2019-05-18] MEDS ORDERED: METHYLPREDNISOLONE SOD SUCC 125MG/2ML VIAL ONE (05:42)
[2019-05-18] MEDS ORDERED: IPRATROPIUM/ALBUTEROL SULFATE 3 ML SOLUTION IH ONE ×2 (05:44→06:41)
[2019-05-18 06:01] LABS: EOSINOPHILS % (AUTO) 14.5 % (0.0-8.0); HEMATOCRIT 42.9 % (36-48); MEAN CORPUSCULAR HEMOGLOBIN 25.3 pg (27.0-33.0); MEAN CORPUSCULAR HGB CONC 32.2 g/dL (32.0-36.0); MEAN CORPUSCULAR VOLUME 78.6 fL (79-99); MONOCYTES % (AUTO) 7.4 % (3.0-13.0); NEUTROPHILS % (AUTO) 57.6 % (40.0-77.0); PLATELET COUNT (AUTO) 290 K/uL (130-400); RED BLOOD CELL COUNT(AUTO) 5.46 MIL/uL (4.00-5.50); RED CELL DISTRIBUTION WIDTH 14.4 % (11.0-15.5); WHITE BLOOD COUNT (AUTO) 9.9 K/uL (4.8-10.8)
[2019-05-18 06:16] LABS: CREATININE 0.7 mg/dL (0.5-1.5); POTASSIUM 3.8 mmol/L (3.5-5.1)
[2019-05-18 06:22] LABS: ALBUMIN 3.4 g/dL (3.5-5.0); BILIRUBIN,TOTAL 0.3 mg/dL (0.2-1.0); TOTAL PROTEIN, SERUM 7.4 g/dL (6.0-8.3)
[2019-05-18 06:30] LABS: HCG,QUAL RESULT NEGATIVE (NEGATIVE)
[2019-05-18 06:34] LABS: AMPHET/METH SCREEN,URINE NEGATIVE (NEGATIVE); BARBITURATE SCREEN, URINE NEGATIVE (NEGATIVE); BENZODIAZEPINES SCREEN,URINE NEGATIVE (NEGATIVE); CANNABINOID SCREEN,URINE NEGATIVE (NEGATIVE); COCAINE SCREEN,URINE POSITIVE (NEGATIVE); OPIATE SCREEN,URINE NEGATIVE (NEGATIVE); PHENCYCLIDINE SCREEN,URINE NEGATIVE (NEGATIVE)
[2019-05-18 06:40] LABS: APPEARANCE,URINE Clear (CLEAR); BILIRUBIN,URINE Negative (NEGATIVE); COLOR,URINE Yellow (YELLOW); GLUCOSE, URINE (UA) Negative (NEGATIVE); KETONES,URINE Negative (NEGATIVE); LEUKOCYTE ESTERASE ,URINE Negative (NEGATIVE); NITRATE,URINE Negative (NEGATIVE); OCCULT BLOOD,URINE Negative (NEGATIVE); PH,URINE 5.5 (5.0-8.0); PROTEIN,URINE Negative (NEGATIVE); UROBILINOGEN,URINE 0.2 mg/dL (0.2-1.0)
[2019-05-18] MEDS ORDERED: LEVOFLOXACIN 750 MG/D5W 150 ML 150 ML ONE (07:31)
[2019-05-18] MEDS ORDERED: ALBUTEROL SULFATE 0.083% 2.5 MG/3 ML INH IH PRN (09:45)
[2019-05-18] MEDS ORDERED: ONDANSETRON HCL 4 MG/2 ML VIAL IV PRN (09:45)
[2019-05-18] MEDS ORDERED: DiphenhydrAMINE HCL 50 MG/ML VIAL IV PRN (09:45)
[2019-05-18] MEDS ORDERED: ACETAMINOPHEN 325 MG TAB PO PRN ×2 (09:45)
[2019-05-18] MEDS ORDERED: METHYLPREDNISOLONE SOD SUCC 125MG/2ML VIAL IV SCH ×2 (09:45→17:45)
[2019-05-18] MEDS: IPRATROPIUM 0.5 MG/2.5 ML INH IH SCH ×4 (10:08→21:15)
[2019-05-18 12:44] VITALS: BP 126/66
[2019-05-18] MEDS ORDERED: DOXYCYCLINE 100MG+NS 250ML 250 ML IV SCH (14:30)
[2019-05-18 15:36] VITALS: BP 127/66
[2019-05-18 20:00] VITALS: BP 120/69
[2019-05-18] MEDS: PREDNISONE 20 MG TABLET PO SCH (20:36)
[2019-05-18] MEDS: DOXYCYCLINE HYCLATE 100 MG TABLET PO SCH (20:36)
[2019-05-18] MEDS: FAMOTIDINE/PF 20 MG/2 ML VIAL IV SCH (20:36)
[2019-05-18] MEDS: ALBUTEROL SULFATE 0.083% 2.5 MG/3 ML INH IH SCH (21:15)
[2019-05-19] VITALS: BP 106/83
[2019-05-19] MEDS: IPRATROPIUM 0.5 MG/2.5 ML INH IH SCH ×4 (01:27→14:01)
[2019-05-19 04:00] VITALS: BP 126/59
[2019-05-19 04:23] LABS: BASOPHILS % (AUTO) 0.1 % (0.0-5.0); HEMATOCRIT 39.7 % (36-48); LYMPHOCYTES % (AUTO) 7.9 % (21.0-51.0); MEAN CORPUSCULAR HGB CONC 31.5 g/dL (32.0-36.0); MEAN CORPUSCULAR VOLUME 79.4 fL (79-99); MONOCYTES % (AUTO) 3.5 % (3.0-13.0); NEUTROPHILS % (AUTO) 87.8 % (40.0-77.0); PLATELET COUNT (AUTO) 315 K/uL (130-400); RED CELL DISTRIBUTION WIDTH 14.5 % (11.0-15.5)
[2019-05-19 04:48] LABS: ALBUMIN 3.2 g/dL (3.5-5.0); BILIRUBIN,TOTAL 0.3 mg/dL (0.2-1.0); CREATININE 0.7 mg/dL (0.5-1.5); POTASSIUM 4.2 mmol/L (3.5-5.1); TOTAL PROTEIN, SERUM 7.1 g/dL (6.0-8.3)
[2019-05-19] MEDS ORDERED: BUDESONIDE 0.5 MG/2 ML INH IH SCH (06:00)
[2019-05-19] MEDS: ALBUTEROL SULFATE 0.083% 2.5 MG/3 ML INH IH SCH ×2 (06:40→14:00)
[2019-05-19 07:50] VITALS: BP 117/56
[2019-05-19] MEDS ORDERED: CETIRIZINE HCL 5 MG TABLET PO SCH (09:00)
[2019-05-19] MEDS: DOXYCYCLINE HYCLATE 100 MG TABLET PO SCH (09:41)
[2019-05-19] MEDS: FAMOTIDINE/PF 20 MG/2 ML VIAL IV SCH (09:41)
[2019-05-19] MEDS: PREDNISONE 20 MG TABLET PO SCH (09:42)
[2019-05-19 12:00] VITALS: BP 118/95
--- NOTE | 2019-05-19 13:27 | NUR ---
i spoke to dr rosario about pcr respiratory test not being done as of yet and he stated to go ahead and cancel the test if it was not done yesterday.
--- NOTE | 2019-05-19 14:01 | NUR ---
INITIAL SW spoke with patient's brother, Santiago Dent, [phone]. Patient lives with brother. She has no home services or DME. Patient is able to complete ADL's independently but does not drive. Brother assists with transportation. Patient has no PCP. Pharmacy is [facility] located on [facility] in [place]. DCP is home. Patient has no insurance or benefits. She is a [place] citizen and has worked int [employer]. Patient's brother was educated on [employer] $4 medication program and [employer] $5 medication program. Patient is being assisted by [employer] for financial matters. Addendum: 05/19/19 at 1404 by JOSE PASCUAL Amended: Links added.
--- NOTE | 2019-05-19 15:00 | NUR ---
WE ATTEMPTED TO MAKE A F/U APPOINTMENT WITH [facility]. BUT OFFICE IS CLOSED; PT STATED SHE WOULD CALL WEDNESDAY AND GET A F/U.
--- NOTE | 2019-05-19 16:46 | NUR ---
PT STATED UNDERSTANDING OF ALL D/C INSTRUCTIONS ON AFTER CARE FOR ASTHMA EXACERBATION AND TAPERING DOSE OF PREDNISONE; IV ACCESS REMOVED; PT DROVE HERSELF HERE AND IS READY TO GO AFTER SHE EATS; I HAVE ALSO PROVIDED TO THE PATIENT A LIST OF LOCAL PRIMARY MD'S FOR HER TO FIND A PHYSICIAN.
== END 2019-05-19 17:00 | disposition home or self-care (01) | DRG 202 ==
LOC: EDH 05:30 → EDHIP 05:31 → 3AH 12:40
PROVIDERS: ADMIT Internal Medicine; ATTEND Internal Medicine
DX: J45.902 Unspecified asthma with status asthmaticus (principal); J96.01 Acute respiratory failure with hypoxia; D72.1 Eosinophilia; E66.9 Obesity, unspecified; F14.90 Cocaine use, unspecified, uncomplicated; F31.9 Bipolar disorder, unspecified; F43.10 Post-traumatic stress disorder, unspecified; G40.909 Epilepsy, unspecified, not intractable, without status epilepticus; J44.9 Chronic obstructive pulmonary disease, unspecified; F41.9 Anxiety disorder, unspecified; Z68.34 Body mass index [BMI] 34.0-34.9, adult; Z88.8 Allergy status to other drugs, medicaments and biological substances; Z88.0 Allergy status to penicillin; Z91.013 Allergy to seafood; Z91.14 Patient's other noncompliance with medication regimen
CPT/HCPCS: 36415; 71045; 80053; 80305; 81003; 81025; 82785; 85025; 87040; 94640; 94664; G0378; J1956; J2930; J3105; J3490

== ENCOUNTER 2019-05-25 09:52 | Inpatient (IN) | payer OTHER ==
[~2019-05-25] VITALS: Ht 157.5 cm; Wt 77.7 kg
[2019-05-25] MEDS ORDERED: ALBUTEROL SULFATE 0.083% 2.5 MG/3 ML INH IH ONE (10:00)
[2019-05-25] MEDS ORDERED: IPRATROPIUM/ALBUTEROL SULFATE 3 ML SOLUTION IH ONE ×2 (10:00→15:24)
[2019-05-25] MEDS ORDERED: METHYLPREDNISOLONE SOD SUCC 125MG/2ML VIAL ONE ×2 (10:09→21:25)
[2019-05-25 10:48] LABS: BASOPHILS % (AUTO) 0.8 % (0.0-5.0); EOSINOPHILS % (AUTO) 12.1 % (0.0-8.0); HEMATOCRIT 46.9 % (36-48); LYMPHOCYTES % (AUTO) 15.8 % (21.0-51.0); MEAN CORPUSCULAR HEMOGLOBIN 25.2 pg (27.0-33.0); MEAN CORPUSCULAR HGB CONC 30.7 g/dL (32.0-36.0); MEAN CORPUSCULAR VOLUME 82.1 fL (79-99); MONOCYTES % (AUTO) 9.1 % (3.0-13.0); NEUTROPHILS % (AUTO) 61.4 % (40.0-77.0); PLATELET COUNT (AUTO) 319 K/uL (130-400); RED BLOOD CELL COUNT(AUTO) 5.71 MIL/uL (4.00-5.50); RED CELL DISTRIBUTION WIDTH 14.6 % (11.0-15.5); WHITE BLOOD COUNT (AUTO) 8.9 K/uL (4.8-10.8)
[2019-05-25 10:58] LABS: CREATININE 0.8 mg/dL (0.5-1.5); POTASSIUM 3.9 mmol/L (3.5-5.1)
[2019-05-25 11:02] LABS: ALBUMIN 3.7 g/dL (3.5-5.0); BILIRUBIN,TOTAL 0.4 mg/dL (0.2-1.0); TOTAL PROTEIN, SERUM 7.6 g/dL (6.0-8.3)
[2019-05-25] MEDS ORDERED: ONDANSETRON HCL 4 MG/2 ML VIAL IV PRN (14:15)
[2019-05-25] MEDS ORDERED: ACETAMINOPHEN 325 MG TAB PO PRN ×2 (14:15)
[2019-05-25] MEDS ORDERED: METHYLPREDNISOLONE SOD SUCC 40MG/ML 1ML IVP SCH (14:30)
[2019-05-25] MEDS ORDERED: IPRATROPIUM/ALBUTEROL SULFATE 3 ML SOLUTION IH PRN (16:00)
[2019-05-25] MEDS ORDERED: ALBUTEROL SULFATE 0.083% 2.5 MG/3 ML INH IH SCH (18:00)
[2019-05-25] MEDS: BUDESONIDE 0.5 MG/2 ML INH IH SCH (19:18)
[2019-05-25] MEDS: IPRATROPIUM/ALBUTEROL SULFATE 3 ML SOLUTION IH SCH ×2 (19:19→22:07)
[2019-05-25] MEDS: FAMOTIDINE/PF 20 MG/2 ML VIAL IV SCH (21:00)
[2019-05-25 21:30] VITALS: BP 134/54
[2019-05-25] MEDS: METHYLPREDNISOLONE SOD SUCC 125MG/2ML VIAL IVP SCH (21:56)
[2019-05-26] VITALS (7 sets, daily range): BP systolic 113–142; BP diastolic 58–106
[2019-05-26] MEDS ORDERED: GABAPENTIN 300 MG CAPSULE ONE (00:10)
[2019-05-26] MEDS ORDERED: TRAZODONE HCL 100 MG TABLET ONE (00:10)
[2019-05-26] MEDS ORDERED: ALPRAZOLAM 1 MG TAB ONE (00:10)
[2019-05-26] MEDS: IPRATROPIUM/ALBUTEROL SULFATE 3 ML SOLUTION IH SCH ×4 (01:22→22:55)
[2019-05-26 05:39] LABS: BASOPHILS % (AUTO) 0.2 % (0.0-5.0); HEMATOCRIT 41.8 % (36-48); MEAN CORPUSCULAR HEMOGLOBIN 24.7 pg (27.0-33.0); MEAN CORPUSCULAR HGB CONC 30.4 g/dL (32.0-36.0); MEAN CORPUSCULAR VOLUME 81.2 fL (79-99); NEUTROPHILS % (AUTO) 85.9 % (40.0-77.0); PLATELET COUNT (AUTO) 320 K/uL (130-400); RED BLOOD CELL COUNT(AUTO) 5.15 MIL/uL (4.00-5.50); RED CELL DISTRIBUTION WIDTH 14.6 % (11.0-15.5); WHITE BLOOD COUNT (AUTO) 5.6 K/uL (4.8-10.8)
[2019-05-26 05:59] LABS: ALBUMIN 3.3 g/dL (3.5-5.0); BILIRUBIN,TOTAL 0.3 mg/dL (0.2-1.0); POTASSIUM 3.8 mmol/L (3.5-5.1); TOTAL PROTEIN, SERUM 7.1 g/dL (6.0-8.3)
[2019-05-26] MEDS: BUDESONIDE 0.5 MG/2 ML INH IH SCH ×2 (06:39→19:52)
--- NOTE | 2019-05-26 08:00 | NUR ---
PATIENT COMPLAINS OF SHARP PAIN TO HER LOWER RIGHT RIB AREA. I ASKED HER WHAT SHE TAKES AT HOME AND SHE STATED THAT SHE TAKES TYLENOL EVERY HOUR. I EDUCATED HER ON TYLENOL OVERDOSE. PATIENT IS VERY ANXIOUS AND RESTLESS. I GAVE HER TYLENOL AND HER MORNING MEDICATIONS, INCLUDING XANAX 2 MG, CELEXA, GABAPENTIN AND LITHIUM. PATIENT ALSO COMPLAINS OF BEING SOB, HER O2 SAT IS 94 ON 2 L AND I INCREASED TO 3L. PATIENT STATED "THIS TYLENOL WILL NOT WORK, JUST GIVE ME THE HARDCORE MEDICATIONS" I EXPLAINED TO HER THAT DUE TO BEING SOB,SHE COULD NOT GET MORE NARCOTICS FOR HER OWN SAFETY AND NOW SHE STATED "I'M BREATHING BETTER NOW, I JUST HAVE THIS HORRIBLE PAIN". I STAYED WITH THE PATIENT FOR A FEW MINUTES TRYING TO USE DISTRACTIONS. PATIENT FINALLY CALLED DOWN, AND IS NOW PLEASANTLY SLEEPING. NO MORE CONCERNS VOICED.
[2019-05-26] MEDS: ALPRAZOLAM 1 MG TAB PO SCH ×3 (08:41→21:03)
[2019-05-26] MEDS: GABAPENTIN 300 MG CAPSULE PO SCH ×3 (08:41→21:03)
[2019-05-26] MEDS: LITHIUM CARBONATE 150 MG CAPSULE PO SCH ×2 (08:41→21:02)
[2019-05-26] MEDS: METHYLPREDNISOLONE SOD SUCC 125MG/2ML VIAL IVP SCH ×2 (08:42→17:28)
[2019-05-26] MEDS: FAMOTIDINE/PF 20 MG/2 ML VIAL IV SCH ×2 (08:42→21:03)
[2019-05-26] MEDS ORDERED: ENOXAPARIN SODIUM 30 MG/0.3 ML SQ SCH (09:00)
[2019-05-26] MEDS ORDERED: LEVOFLOXACIN 750 MG/D5W 150 ML 150 ML IV SCH (09:00)
[2019-05-26] MEDS ORDERED: CITALOPRAM 20 MG TABLET PO SCH (09:00)
[2019-05-26] MEDS ORDERED: SUB PER P&T FOR ASTHMA OR COPD RECOMMENDATION IH SCH (09:00)
--- NOTE | 2019-05-26 12:01 | NUR ---
INITIAL SW spoke with patient's brother, Santiago Dent, [phone]. Patient lives with brother. No home services or DME. Patient is able to complete ADL's independently but does not drive. Brother assists with transportation. Patient has no PCP. Pharmacy is [facility] located on [facility] in [place]. DCP is home. Patient has no insurance or benefits. 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 Patient's brother was educated on [employer] $4 medication program and [employer] $5 medication program during last admission. Patient is being assisted by [employer] for financial matters. Addendum: 05/26/19 at 1202 by JOSE BUCHANAN Amended: Links added.
[2019-05-26] MEDS ORDERED: PRAZOSIN 1 MG PO SCH (21:00)
[2019-05-26] MEDS ORDERED: TRAZODONE HCL 100 MG TABLET PO SCH (21:00)
--- NOTE | 2019-05-26 23:25 | NUR ---
AMA PATIENT WANTING TO GO HOME AGAINST MEDICAL ADVICE, EXPLAIN TO PATIENT IMPORTANCE OF CURRENT MEDICAL TREATMENT PRESCRIBED BY PHYSCIANS, EXTENSIVE DISCUSSION WITH PATIENT REGARDING POSSIBLE CONSEQUENCES OF LEAVING AGAINST MEDICAL ADVICE AND POSSIBLE WORSENING OF SYMPTOMS AND POSSIBLE , PATIENT CONTINUE TO REQUEST SHE IS LEAVING AGAINST MEDICAL ADVICE, HOSPITALIST ERNESTO TORRES, MAINTENANCE SERVICE SUPERVISOR SALVATORE VELARDE R.N NOTIFIED OF PATIENTS REQUEST TO LEAVE AMA
--- NOTE | 2019-05-26 23:40 | NUR ---
HOSPITALIST HOSPITALIST BRENDA PHILIPP INFORMED OF PATIENT LEAVING AMA, BRENDA SPOKE TO PATIENT VIA PHONE IMPORTANCE OF CONTINUE TREATMENT AND POSSIBLE COMPLICATIONS IF PATIENT TO GO AMA, PATIENT STILL PERSISTENT TO LEAVE HOME, PER PATIENT "I HAVE LOTS OF PROBLEMS IN MY HOUSE"
--- NOTE | 2019-05-26 23:45 | NUR ---
TREVOR MURRAY FORMED SIGNED, REMOVE SALINE LOCK RIGHT POSTERIOR FOREARM, NO REDNESS OR SWELLING NOTED, APPLY 2X2 AND TAPE, TOLERATED WELL
--- NOTE | 2019-05-26 23:47 | NUR ---
AMA PATIENT LEFT HOSPITAL AGAINST MEDICAL ADVICE WITH PERSONAL BELONGINGS
== END 2019-05-26 23:52 | disposition left against medical advice (07) | DRG 189 ==
LOC: EDH 09:52 → EDHIP 09:53 → 3DH 20:39
PROVIDERS: ADMIT Internal Medicine; ATTEND Internal Medicine
DX: J96.01 Acute respiratory failure with hypoxia (principal); J45.51 Severe persistent asthma with (acute) exacerbation; J44.9 Chronic obstructive pulmonary disease, unspecified; F41.9 Anxiety disorder, unspecified; F31.9 Bipolar disorder, unspecified; F14.10 Cocaine abuse, uncomplicated; F43.10 Post-traumatic stress disorder, unspecified; Z88.8 Allergy status to other drugs, medicaments and biological substances; Z88.0 Allergy status to penicillin; Z91.013 Allergy to seafood; Z82.5 Family history of asthma and other chronic lower respiratory diseases
CPT/HCPCS: 36415; 71045; 80053; 85025; 94640; 94644; 94664; G0378; J1650; J1956; J2930; J3490